=== PATIENT | male | born 1995 | race Caucasian/White ===

== ENCOUNTER 2021-01-08 20:43 | Emergency (ER) | payer OTHER, BC, SELFPAY ==
--- NOTE | ~2021-01-08 | XR_ITS ---
XR finger 5th RT min 2V 01/08/2021 22:09 Indication: Right fifth finger pain Procedure: 4 views right fifth finger Comparison: No prior studies for comparison. Findings: There is a nondisplaced shaft fracture of the right fifth proximal phalanx. No significant soft tissue abnormality. No foreign bodies. No other fractures. Impression: 1: Nondisplaced extra-articular shaft fracture right fifth proximal phalanx. Reviewed, dictated and finalized at location A. BILITATION THERAPY AIDE Impression: 1: Nondisplaced extra-articular shaft fracture right fifth proximal phalanx.
[2021-01-08 21:03] VITALS: BP 164/101; PULSE 94; RESP 16; TEMP 36.7; O2SAT 100
--- NOTE | 2021-01-08 21:41 | ED.WOUNDLAC ---
HPI - Wound/Laceration General Chief Complaint: Wound/Laceration Stated Complaint: laceration Time Seen by Provider: 01/08/21 21:40 Source: patient Mode of arrival: ambulatory Limitations: no limitations History of Present Illness HPI narrative: Patient is a 25-year-old [id number] male presenting for evaluation of crush injury to right fifth digit. Patient states that he was using a drive shaft when it fell, crushing his right pinky. Patient denies any numbness, does report mild pain at the site. Patient states he has a small laceration overlying the knuckle. Denies other hand pain. No wrist pain or elbow pain. Patient is unsure if he is up-to-date on his tetanus. Patient states that the wound is quite dirty. Denies history of skin infection in the past. Related Data Allergies Allergy/AdvReac Type Severity Reaction Status Date / Time Penicillins Allergy Mild Unknown Verified 01/08/21 21:32 Review of Systems Review of Systems: CONSTITUTIONAL: Denies fever CARDIOVASCULAR: Denies chest pain RESPIRATORY: Denies cough or dyspnea. GASTROINTESTINAL: Denies abdominal pain SKIN: Denies rash, reports laceration to right fifth digit MUSCULOSKELETAL: Denies back pain NEUROLOGIC: Denies headache . [facility] Social History Social History (Updated 01/08/21 @ 21:57 by Ly Mosley MD) Smoking status: Current some day smoker Tobacco type: cigarettes Alcohol intake: never Substance use: never Gender identity (if verbalized by the patient): Male Exam Narrative: GENERAL: Awake, alert, conversant HEAD: Normocephalic, atraumatic. EYES: PERRLA and EOMI. ENT: Nares clear, no rhinorrhea or epistaxis. Mucous membranes moist. NECK: Supple. CHEST: No respiratory distress, breathing even and non labored HEART: Regular rate, sinus rhythm ABDOMEN:Non distended, non tender EXTREMITIES: Bilateral lower extremities are normal. Right hand is covered with oil. There is a 1 cm flap laceration overlying the PIP of the fifth digit, dorsal aspect. There is no nail avulsion or amputation. Intact sensation median, ulnar, radial nerve distribution. Intact flexion and extension at the DIP and PIP. There does appear to be open component to this wound. SKIN: Warm, dry, no rash. NEURO:No focal deficits. Alert and oriented x3 Course Vital Signs Vital signs: Vital Signs Temperature 36.7 C 01/08/21 21:03 Pulse Rate 94 01/08/21 21:03 Respiratory Rate 16 01/08/21 21:03 Blood Pressure 164/101 H 01/08/21 21:03 Pulse Oximetry 100 01/08/21 21:03 Temperature 36.7 C 01/08/21 21:03 Pulse Rate 94 01/08/21 21:03 Respiratory Rate 16 01/08/21 21:03 Blood Pressure 164/101 H 01/08/21 21:03 Pulse Oximetry 100 01/08/21 21:03 Procedures Laceration Laceration 1: Date: 01/08/21 Time: 22:04 Site: other (right fifth digit) Side (If applicable): right Size (cm): 1 Description: flap Depth: involves muscle layer Local Anesthetic: lidocaine 1% Amount of anesthesia used (mL): 3 Pre-repair: wound explored, irrigated and irrigated extensively ====== Skin Level ====== Skin layer closed with: prolene Size (cm): 5-0 Number of sutures: 2 Technique: simple, interrupted (loose approximation only) ====== Subcutaneous Layer ====== ====== Muscle Layer ====== ====== Tendon Layer ====== Nerve Block Nerve Block 1: Nerve block date: 01/08/21 Nerve block time: 23:27 Time out performed: No Local Anesthetic: lidocaine 1% Amount of anesthesia used (mL): 4 Side: right Nerve Blocks: digital Procedure Successful: Yes Patient Tolerated Procedure: well and no complications Complications: none Orthopedic Splinting/Casting Injury #1: Splinting/Casting Date: 01/08/21 Splinting/Casting Time: 23:27 Side: right Upper Extremity Injury Lo
[2021-01-08] MEDS: TETANUS,DIPHTHERIA,AC PERTUSSIS ADULT (0.5 ML) BOOSTRIX IM (22:06)
[2021-01-08] MEDS: CEPHALEXIN 500 MG CAPSULE PO (23:41)
== END 2021-01-08 23:56 | disposition home or self-care (01) ==
PROVIDERS: Emergency Provider Emergency Medicine
DX: S62.656B Nondisplaced fracture of middle phalanx of right little finger, initial encounter for open fracture (principal); F17.210 Nicotine dependence, cigarettes, uncomplicated; Z23 Encounter for immunization; W20.8XXA Other cause of strike by thrown, projected or falling object, initial encounter
CPT/HCPCS: 12001; 29130; 73140; 90471; 90715; 99284; A9270

== ENCOUNTER 2021-01-14 14:37 | Outpatient (CLI) | payer OTHER, SELFPAY ==
--- NOTE | ~2021-01-14 | XR_ITS ---
EXAMINATION: XR hand RT min 3V EXAM DATE: 01/14/2021 15:33 INDICATION: FX of RT 5th DIGIT . TECHNIQUE: Right hand frontal, lateral and oblique projections obtained and reviewed. Correlation is made to right 5th finger x-ray 01/08/2021. FINDINGS: Right metacarpal bones are unremarkable. There is a splint overlying the ulnar side of th e hand and wrist. Transverse nondisplaced fracture through the right 5th proximal phalanx again ident ified without angulation. Difficult to appreciate healing response through the cast. IMPRESSION: Splinted right 5th proximal phalangeal shaft transverse fracture, in anatomic position a nd alignment unchanged. Reviewed, dictated and finalized at location A. F COMMERCIAL OFFICER IMPRESSION: Splinted right 5th proximal phalangeal shaft transverse fracture, in anatomic position and alignment unchanged.
== END 2021-01-14 14:38 | disposition home or self-care (01) ==
LOC: ANHIMG 14:47
PROVIDERS: PCP Plastic Surgery; Visit Provider Plastic Surgery
DX: S62.646A Nondisplaced fracture of proximal phalanx of right little finger, initial encounter for closed fracture (principal); X58.XXXA Exposure to other specified factors, initial encounter
CPT/HCPCS: 73130

== ENCOUNTER 2021-02-04 12:50 | Outpatient (CLI) | payer OTHER, BC, SELFPAY ==
--- NOTE | ~2021-02-04 | XR_ITS ---
EXAMINATION: XR hand RT min 3V DATE: 02/04/2021 13:27 INDICATION: Fracture of the right fifth proximal phalanx TECHNIQUE: Posteroanterior, oblique and lateral views of the right hand were obtained. COMPARISON: 01/14/2021. FINDINGS: Again seen is a nondisplaced transverse fracture across the distal diaphysis of the right fifth proxi mal phalanx. There is residual lucency along the fracture plane with slightly smoother margins consis tent with very early resorptive changes of healing. No periosteal reaction or other productive change s of healing yet apparent. Alignment of the fracture remains essentially anatomic. No other fractures identified. 3 mm ulnar minus variance with mild osteoarthritis at the distal radioulnar joint. Remai nat joint spaces appear relatively preserved. Mild soft tissue swelling about the fifth proximal pha lanx. IMPRESSION: 1. Transverse distal diaphyseal fracture of the right fifth proximal phalanx which remains nondisplac ed in essentially anatomic alignment but without productive changes of healing yet apparent. Reviewed, dictated and finalized at location H. STOCK OPERATOR IMPRESSION: 1. Transverse distal diaphyseal fracture of the right fifth proximal phalanx wh ich remains nondisplaced in essentially anatomic alignment but without producti ve changes of healing yet apparent.
== END 2021-02-04 12:51 | disposition home or self-care (01) ==
LOC: ANHIMG 12:55
PROVIDERS: PCP Plastic Surgery; Visit Provider Plastic Surgery
DX: S62.646A Nondisplaced fracture of proximal phalanx of right little finger, initial encounter for closed fracture (principal)
CPT/HCPCS: 73130

== ENCOUNTER 2021-04-10 11:22 | Outpatient (CLI) | payer OTHER, SELFPAY ==
--- NOTE | ~2021-04-10 | XR_ITS ---
EXAMINATION: XR hand RT min 3V EXAM DATE: 04/10/2021 11:43 INDICATION: Healing rt 5th proximal phalanx. TECHNIQUE: Right hand frontal, lateral and oblique projections obtained and reviewed. Comparison is m baljinder to prior examination from 02/04/2021, 01/14/2021. FINDINGS: Right metacarpal bones are unremarkable. Subacute fracture through the right 5th proximal phalanx. There has been interval development of sclerosis at the fracture margin without definite so lid bone bridging. Possible development of mild buttressing, at risk for nonunion. Continued follow-u p is recommended. IMPRESSION: Right 5th proximal phalangeal shaft fracture at risk for delayed union, nonunion. Reviewed, dictated and finalized at location . NGUAL CUSTOMER SERVICE SPECIALIST IMPRESSION: Right 5th proximal phalangeal shaft fracture at risk for delayed un ion, nonunion.
== END 2021-04-10 11:23 | disposition home or self-care (01) ==
PROVIDERS: Visit Provider Plastic Surgery
DX: S62.616A Displaced fracture of proximal phalanx of right little finger, initial encounter for closed fracture (principal)
CPT/HCPCS: 73130

== ENCOUNTER 2021-05-08 12:16 | Outpatient (CLI) | payer OTHER, SELFPAY ==
--- NOTE | ~2021-05-08 | XR_ITS ---
EXAMINATION: XR hand RT min 3V INDICATION: Healing fracture of the fifth proximal phalanx TECHNIQUE: Three views of the right hand are obtained. COMPARISON: 04/10/2021 FINDINGS: There is a transverse fracture in the distal shaft of the fifth proximal phalanx which demo nstrates slightly increased calcified callus at the fracture site. Alignment is normal. No additional fracture is identified. The joint spaces are normal. IMPRESSION: 1. Transverse fracture in the distal shaft of the fifth proximal phalanx slight increase in calcified callus at the fracture site. Reviewed, dictated and finalized at location B.
== END 2021-05-08 12:17 | disposition home or self-care (01) ==
PROVIDERS: Visit Provider Plastic Surgery
DX: S62.646A Nondisplaced fracture of proximal phalanx of right little finger, initial encounter for closed fracture (principal)
CPT/HCPCS: 73130